=== PATIENT | male | born 1970 | race American Indian/Alaskan Native ===

== ENCOUNTER 2016-10-13 20:50 | Emergency (ER) | payer OTHER ==
[2016-10-13 21:46] VITALS: BP 130/81; PULSE 65; RESP 18; TEMP 99; O2SAT 98
--- NOTE | 2016-10-13 22:20 | ED PDOC ---
Arrival/HPI - General Historian: Patient - History of Present Illness Time/Duration: Other (5 years) Symptom Onset: Gradual Symptom Course: Intermittent Quality: Throbbing Severity Level: 2 <Jj Barrios - Last Filed: 10/13/16 22:45> <Jevon Santana DO - Last Filed: 10/13/16 22:50> - General Chief Complaint: Headache Time Seen by Provider: 10/13/16 21:43 - History of Present Illness Narrative History of Present Illness (Text): 10/13/16 22:25 This is a 46 year old male with PMH left ICA stenosis who presents for evaluation of headaches. Headaches have been intermittent for 5 years now. Pain begins on the right side of the trapezius and radiates up to the right side of his head. There is also intermittent pressure felt behind the right eye. Pain described as throbbing and 8 or 9/10 intensity at its worst. It is currently mild at 2/10. Patient complaining of photophobia, phonophobia, scintillating scotomas. Patient denies numbness, tingling. Patient states that he usually only experiences the headaches when it gets cold. There is intermittent radiation down to the teeth on the right side. Patient elected to have the teeth removed in the past but without relief from the pain. Patient has tried Excedrin but relief from it seems to be intermittent or occasional. PMH: Left ICA stenosis PSH: Denies Allergies: Seasonal Social: Denies tobacco, alcohol, drugs. PMD: Dr. Yohan Arnold in [place], [place] 10/13/16 22:33 (Jj Barrios) Past Medical History - Provider Review Nursing Documentation Reviewed: Yes - Infectious Disease Hx of Infectious Diseases: None - Neurological Hx Headaches: Yes - Endocrine/Metabolic Hx Diabetes Mellitus Type 2: (border line) - Psychiatric Hx Substance Use: No - Anesthesia Hx Anesthesia: No <Jj Barrios - Last Filed: 10/13/16 22:45> Family/Social History - Physician Review Nursing Documentation Reviewed: Yes Family/Social History: No Known Family HX Smoking Status: Unknown If Ever Smoked Hx Alcohol Use: Yes Frequency of alcohol use: Socially Hx Substance Use: No <Jj Barrios - Last Filed: 10/13/16 22:45> Allergies/Home Meds <Jj Barrios - Last Filed: 10/13/16 22:45> <Esther Jevon CERVANTES - Last Filed: 10/13/16 22:50> Allergies/Adverse Reactions: Allergies seasonal Allergy (Uncoded 10/13/16 21:19) CONGESTION Home Medications: Home Meds Medication Instructions Recorded Confirmed Loratadine/Pseudoephedrine 1 each PO DAILY 10/13/16 10/13/16 [Claritin-D 24 Hour Tablet] Review of Systems - Physician Review All systems were reviewed & negative as marked: Yes - Review of Systems Constitutional: Normal Eyes: Photophobia ENT: Other (phonophobia) Respiratory: Normal Cardiovascular: Normal Gastrointestinal: Normal Genitourinary Male: Normal Musculoskeletal: Neck Pain Skin: Normal Neurological: Headache, Other (photophobia, phonophobia, scintillating scotomas) Endocrine: Normal Hemo/Lymphatic: Normal Psychiatric: Normal <Jj Barrios - Last Filed: 10/13/16 22:45> Physical Exam Vital Signs Reviewed: Yes Temperature: Afebrile Blood Pressure: Normal Pulse: Regular Respiratory Rate: Normal Appearance: Positive for: Comfortable Pain Distress: Mild Mental Status: Positive for: Alert and Oriented X 3 - Systems Exam Head: Present: Atraumatic, Normocephalic Pupils: Present: PERRL Extroacular Muscles: Present: EOMI Conjunctiva: Present: Normal Mouth: Present: Moist Mucous Membranes, Other (TMJ misallignment palpated) Neck: Present: Normal Range of Motion, Paraspinal Tenderness (on the right cervical paraspinal muscles and the right trapezius) Respiratory/Chest: Present: Clear to Auscultation, Good Air Exchange. No: Accessory Muscle Use Cardiovascular: Present: Regular Rate and Rhythm, Normal S1, S2 Abdomen: Present: Normal Bowel Sounds. No: Tenderness, Distention Upper Extremity: Present: Normal Inspection, NORMAL PULSES. No: Edema Lower Extremity: Present: Normal Inspection, NORMAL PULSES. No: Edema, CALF TENDERNESS Neurological: Present: GCS=15, CN II-XII Intact Skin: Present: Warm, Dry, Normal Color. 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 This is a chronic problem given the duration of the symptoms. Patient discharged with prescriptions for Motrin and Flexeril and instructed to follow up with his PMD Dr. Arnold. The PMD's information was provided. Patient also instructed to purchase a general mouth guard to wear when he sleeps until he can see a specialist to get a custom one. (Jj Barrios) In agreement with resident note, which includes further HPI details. Patient was seen and evaluated with resident, came up with plan and treatment together. (Jevon Santana DO) - PA / GLOBAL RISK MANAGEMENT DIRECTOR / Resident Statement JANICE has reviewed & agrees with the documentation as recorded. JANICE has examined the patient and agrees with the treatment plan. <Jevon Santana DO - Last Filed: 10/13/16 22:50> Disposition/Present on Arrival - Present on Arrival Any Indicators Present on Arrival: No History of DVT/PE: No History of Uncontrolled Diabetes: No Urinary Catheter: No History of Decub. Ulcer: No History Surgical Site Infection Following: None - Disposition Have Diagnosis and Disposition been Completed?: Yes Disposition Time: 22:15 <Jj Barrios - Last Filed: 10/13/16 22:45> <Jevon Santana DO - Last Filed: 10/13/16 22:50> - Disposition Diagnosis: Headache Disposition: HOME/ ROUTINE Condition: STABLE Additional Instructions: Take the Motrin 600 mg by mouth every 6 hours ONLY IF needed for pain. Take it with food. Take the Flexeril 10 mg by mouth at bedtime. This is the muscle relaxer. Please follow up with Dr. Arnold in his office within 7 days. Please purchase a mouth guard from your nearest drug store and wear it when you sleep until you can get a customized one from a dental specialist. Please see Dr. Arnold about a referral for physical therapy for the tight neck and right shoulder muscles. If these don't help with the headache, ask Dr. Arnold for a referral to a neurologist. If you experience worsening or emergent symptoms, please return to the emergency room. Prescriptions: Cyclobenzaprine [Cyclobenzaprine HCl] 10 mg PO HS #10 tab Ibuprofen [Motrin] 600 mg PO Q6H PRN #20 tab PRN Reason: Pain, Moderate (4-7) Referrals: Yohan Arnold MD [Family Provider] - Follow up with primary Forms: [employer] ([place])
== END 2016-10-13 22:31 | disposition home or self-care (01) ==
LOC: ED 20:50
DX: R51 Headache (principal)